=== PATIENT | female | born 1965 | race African-American/Black ===

== ENCOUNTER 2016-10-11 11:19 | Emergency (ER) | payer OTHER ==
[~2016-10-11] VITALS: Ht 152.4 cm; Wt 68.0 kg
[~2016-10-11 11:19] MED LIST: AVELOX 400 MG400 MG PO; BENEFIBER1 G2; CALCIUM 600 +1 EAC1 PO; FIBER; HYDROCHLOROTHIA25 M1 PO; K-DUR 20 MEQ T20 MEQ PO; KLOR-CON 1010 MEQ PO; METAMUCIL WAFER1 PK1 PO; MUCINEX600 MG PO; MULTIVITAMINS1 EAC7 PO; NASAL MOISTURIZ30 ML NS; PROVENTIL IH; SINGULAIR 10 MG10 M1 PO; ULTRAM 50MG TAB50 MG PO; ZYRTEC10 MG PO
[2016-10-11 11:40] LABS: URINE BILIRUBIN NEGATIVE (Negative); URINE BLOOD TRACE (Negative); URINE COLOR YELLOW; URINE GLUCOSE-RANDOM* NEGATIVE (Negative); URINE KETONES NEGATIVE (Negative); URINE NITRITE NEGATIVE (Negative); URINE PROTEIN (DIPSTICK) NEGATIVE (Negative); URINE UROBILINOGEN 0.2 E.U./dl (0.2-1.0)
[2016-10-11 11:53] LABS: ABSOLUTE NEUTROPHILS 3.3 thou/uL (1.4-8.2); BASOPHILS 1.2 % (0.0-2.0); EOSINOPHILS 1.6 % (0.0-3.0); HEMATOCRIT 36.4 % (37.0-47.0); HEMOGLOBIN 12.4 gm/dL (12.0-15.0); LYMPHOCYTES 47.3 % (24.0-44.0); MANUAL DIFF NO; MCV 85.2 fL (80.0-100.0); PLATELET COUNT 187 thou/uL (150-400); POLYS 45.9 % (36.0-66.0); RBC 4.27 mil/uL (4.20-5.00); WBC 7.2 thou/uL (4.0-11.0)
[2016-10-11 12:05] LABS: CALCIUM 9.2 mg/dL (8.5-10.1); CREATININE 0.7 mg/dL (0.6-1.0); POTASSIUM 3.6 mmol/L (3.5-5.1)
[2016-10-11 12:10] LABS: ALBUMIN 3.8 g/dL (3.4-5.0); TOTAL BILIRUBIN 0.5 mg/dL (<0.1-1.0); TOTAL PROTEIN 7.5 g/dL (6.4-8.2)
[2016-10-11 12:55] VITALS: BP 106/73
[2016-10-11] MEDS ORDERED: CYCLOBENZAPRINE5 MG PO (13:25)
[2016-10-11] MEDS ORDERED: PREDNISONE 20 M20 MG PO (13:25)
[2016-10-11] MEDS ORDERED: NORCO 5-325 TA1 EACH PO (13:33)
== END 2016-10-11 13:39 | disposition home or self-care (01) ==
LOC: ER 11:19
PROVIDERS: Physician Assistant
DX: M62.830 Muscle spasm of back (principal); I10 Essential (primary) hypertension; F17.210 Nicotine dependence, cigarettes, uncomplicated; Z87.442 Personal history of urinary calculi; Z90.710 Acquired absence of both cervix and uterus; Z98.890 Other specified postprocedural states; Z96.0 Presence of urogenital implants